=== PATIENT | male | born 1995 | race African-American/Black ===

== ENCOUNTER 2017-05-02 09:18 | Emergency (ER) | payer OTHER ==
[~2017-05-02] VITALS: Ht 172.7 cm; Wt 107.8 kg
[2017-05-02 09:50] LABS: BASOPHILS # (AUTO) 0.01 x10^3/uL (0-0.1); BASOPHILS % (AUTO) 0 % (0-1); EOSINOPHILS # (AUTO) 0.02 x10^3/uL (0-0.4); EOSINOPHILS % (AUTO) 0 % (1-7); LYMPHOCYTES # (AUTO) 0.67 x10^3/uL (1-3.4); LYMPHOCYTES % (AUTO) 6 % (22-44); MD NO; MEAN CORPUSCULAR HEMOGLOBIN 28.6 pg (27.5-34.5); MEAN CORPUSCULAR HGB CONC 33.7 g/dL (33.2-36.2); MEAN CORPUSCULAR VOLUME 84.8 fL (81-97); MONOCYTES # (AUTO) 0.41 x10^3/uL (0.2-0.8); MONOCYTES % (AUTO) 4 % (2-9); NEUTROPHILS # (AUTO) 10.68 x10^3/uL (1.8-6.8); NEUTROPHILS % (AUTO) 91 % (42-75); PLATELET COUNT 349 x10^3/uL (130-400); RED BLOOD COUNT 5.82 x10^6/uL (4.38-5.82)
[2017-05-02 10:00] LABS: ALANINE AMINOTRANSFERASE 37 U/L (12-78); ALBUMIN 4.5 g/dL (3.4-5.0); ANION GAP 7 mmol/L (5-15); CALCIUM 9.7 mg/dL (8.5-10.1); CHLORIDE 104 mmol/L (98-107); CREATININE 1.18 mg/dL (0.7-1.3)
[2017-05-02] MEDS ORDERED: ONDANSETRON 2MG/ML, 2ML IVPush ONE (10:00)
[2017-05-02] MEDS ORDERED: SODIUM CHLORIDE 0.9% 1,000ML IVBOLUS ONE (10:00)
[2017-05-02] MEDS ORDERED: SODIUM CHLORIDE FLUSH 10ML SYR IVF ONE (10:00)
[2017-05-02 10:03] LABS: ALKALINE PHOSPHATASE 73 U/L (45-117); BILIRUBIN,TOTAL 0.6 mg/dL (0.2-1.0); TOTAL PROTEIN 8.1 g/dL (6.4-8.2)
[2017-05-02] MEDS ORDERED: ONDANSETRON 2MG/ML, 2ML ONE (10:11)
[2017-05-02] MEDS ORDERED: SERT25TA PO (10:17)
[2017-05-02] MEDS ORDERED: DICYCLOMINE 10 MG/ML, 2ML IM ONE (11:30)
[2017-05-02] MEDS ORDERED: DICYCLOMINE 10 MG/ML, 2ML ONE (11:50)
[2017-05-02 12:16] VITALS: BP 140/90
== END 2017-05-02 12:55 | disposition home or self-care (01) ==
LOC: ED 10:53
DX: A04.9 Bacterial intestinal infection, unspecified (principal); E86.0 Dehydration
CPT/HCPCS: 36415; 74021; 80053; 85025; 86850; 86900; 96361; 96372; 96374; 99285; J0500; J2405; J7030